=== PATIENT | male | born 1960 | race Caucasian/White ===

== ENCOUNTER 2021-05-14 21:14 | Emergency (ER) | payer OTHER ==
[~2021-05-14] VITALS: Ht 177.8 cm; Wt 97.5 kg
[~2021-05-14 21:14] MED LIST: LISINOPRIL
[2021-05-14] MEDS ORDERED: KETOROLAC TROMETHAMINE 30 MG/ML VIAL IV STA (21:29)
[2021-05-14] MEDS ORDERED: FENTANYL CITRATE/PF 100MCG/2 ML INJ IV ONE (21:30)
[2021-05-14 21:45] LABS: BASOPHILS % 0.3 % (0.0-1.0); EOSINOPHILS # (AUTO) 0.1 (0.0-0.4); EOSINOPHILS % 0.5 % (0.0-6.0); HEMATOCRIT 46.8 % (38.2-49.6); HEMOGLOBIN 15.9 g/dL (14.0-18.0); LYMPHOCYTES # (AUTO) 1.4 (1.0-3.2); LYMPHOCYTES % 14.6 % (18.0-39.1); MEAN CORPUSCULAR HEMOGLOBIN 31.7 pg (28-32); MEAN CORPUSCULAR VOLUME 93.2 fL (81-99); MONOCYTES # (AUTO) 0.7 (0.2-0.8); MONOCYTES % 7.4 % (4.4-11.3); NEUTROPHILS # (AUTO) 7.3 (2.1-6.9); NEUTROPHILS % 76.8 % (38.7-80.0); PLATELET COUNT 210 x10e3/uL (140-360); RED BLOOD COUNT 5.02 x10e6/uL (4.3-5.7); RED CELL DISTRIBUTION WIDTH 13.2 % (11.7-14.4)
[2021-05-14] MEDS ORDERED: KETOROLAC TROMETHAMINE 30 MG/ML VIAL ONE (21:45)
[2021-05-14 21:46] LABS: CLARITY,URINE CLEAR (CLEAR); COLOR,URINE YELLOW (YELLOW); KETONES,URINE NEGATIVE (NEGATIVE); LEUKOCYTE ESTERASE ,URINE NEGATIVE (NEGATIVE); NITRITE,URINE NEGATIVE (NEGATIVE); PROTEIN,URINE DIPSTICK NEGATIVE (NEGATIVE); URINE UROBILINOGEN 0.2 mg/dL (0.2 - 1)
[2021-05-14 21:55] LABS: BACTERIA,URINE FEW /HPF; EPITHELIAL CELLS,URINE RARE /LPF; WBC,URINE (MAN) 0-5 /HPF (0-5)
[2021-05-14 22:02] LABS: ALBUMIN 4.6 g/dL (3.5-5.0); ALBUMIN/GLOBULIN RATIO 1.6 (0.8-2.0); ANION GAP 16.1 mmol/L (8-16); CALCIUM 9.1 mg/dL (8.4-10.2); CREATININE, SERUM 1.23 mg/dL (0.72-1.25); POTASSIUM 4.1 mmol/L (3.5-5.1)
[2021-05-15] MEDS ORDERED: FLOMAX0.4 MG PO (00:16)
[2021-05-15] MEDS ORDERED: ONDANSETRON ODT4 MG PO (00:16)
[2021-05-15] MEDS ORDERED: ACETAMINOPHEN-1 EAC4 PO (00:16)
== END 2021-05-15 00:20 | disposition home or self-care (01) ==
LOC: ER 22:34
DX: N20.1 Calculus of ureter (principal); R11.2 Nausea with vomiting, unspecified; R19.7 Diarrhea, unspecified; E78.5 Hyperlipidemia, unspecified
CPT/HCPCS: 36415; 74176; 80053; 81001; 85025; 99284; J1885

== ENCOUNTER 2021-08-07 21:56 | Emergency (ER) | payer OTHER ==
[~2021-08-07] VITALS: Ht 177.8 cm; Wt 97.5 kg
[~2021-08-07 21:56] MED LIST changes: +ACETAMINOPHEN-1 EAC4 PO; +FLOMAX0.4 MG PO; +ONDANSETRON ODT4 MG PO
[2021-08-07 22:43] LABS: BACTERIA,URINE RARE /HPF; CLARITY,URINE CLEAR (CLEAR); COLOR,URINE YELLOW (YELLOW); EPITHELIAL CELLS,URINE FEW /LPF; KETONES,URINE 1+ (NEGATIVE); LEUKOCYTE ESTERASE ,URINE NEGATIVE (NEGATIVE); NITRITE,URINE NEGATIVE (NEGATIVE); PROTEIN,URINE DIPSTICK NEGATIVE (NEGATIVE); URINE UROBILINOGEN 0.2 mg/dL (0.2 - 1); WBC,URINE (MAN) 0-5 /HPF (0-5)
[2021-08-07 22:44] LABS: BASOPHILS % 0.2 % (0.0-1.0); EOSINOPHILS % 0.1 % (0.0-6.0); HEMATOCRIT 46.2 % (38.2-49.6); HEMOGLOBIN 15.9 g/dL (14.0-18.0); LYMPHOCYTES # (AUTO) 0.8 (1.0-3.2); LYMPHOCYTES % 6.5 % (18.0-39.1); MEAN CORPUSCULAR HEMOGLOBIN 31.1 pg (28-32); MEAN CORPUSCULAR HGB CONC 34.4 g/dL (31-35); MEAN CORPUSCULAR VOLUME 90.2 fL (81-99); MONOCYTES # (AUTO) 0.9 (0.2-0.8); MONOCYTES % 7.2 % (4.4-11.3); NEUTROPHILS # (AUTO) 10.8 (2.1-6.9); NEUTROPHILS % 85.8 % (38.7-80.0); PLATELET COUNT 222 x10e3/uL (140-360); RED BLOOD COUNT 5.12 x10e6/uL (4.3-5.7); RED CELL DISTRIBUTION WIDTH 12.2 % (11.7-14.4)
[2021-08-07] MEDS ORDERED: KETOROLAC TROMETHAMINE 30 MG/ML VIAL IV STA (22:44)
[2021-08-07 22:55] LABS: ANION GAP 15.5 mmol/L (8-16); CALCIUM 8.9 mg/dL (8.4-10.2); CREATININE, SERUM 1.18 mg/dL (0.72-1.25); POTASSIUM 4.5 mmol/L (3.5-5.1)
[2021-08-07] MEDS ORDERED: KETOROLAC TROMETHAMINE 30 MG/ML VIAL ONE (22:57)
[2021-08-08] MEDS ORDERED: HYDROCODON-ACE1 EAC9 PO (00:30)
[2021-08-08] MEDS ORDERED: CEFDINIR300 MG PO (00:30)
[2021-08-08] MEDS ORDERED: FLOMAX0.4 MG PO (00:30)
[2021-08-08] MEDS ORDERED: KETOROLAC TROME10 MG PO (00:30)
[2021-08-08] MEDS ORDERED: ONDANSETRON ODT4 MG PO (00:30)
[2021-08-08 00:33] VITALS: BP 109/75
== END 2021-08-08 00:46 | disposition home or self-care (01) ==
LOC: ER 22:35
DX: R30.0 Dysuria (principal); N20.1 Calculus of ureter; E78.5 Hyperlipidemia, unspecified; K76.0 Fatty (change of) liver, not elsewhere classified; F41.9 Anxiety disorder, unspecified
CPT/HCPCS: 36415; 74176; 80048; 81001; 85025; 99284; J1885